=== PATIENT | female | born 1990 | race Caucasian/White ===

== ENCOUNTER 2018-06-29 18:24 | Emergency (ER) | payer MEDICAID ==
[2018-06-29 18:34] VITALS: BP 124/94
--- NOTE | 2018-06-29 18:46 | EDPHY ---
H & P Time Seen by Provider: 06/29/18 18:45 HPI/ROS: Chief complaint. Jaw pain HPI. 27-year-old female 2 day history of right lower posterior dental pain. Hurts to bite down. She feels like she taste pus. No acute trauma to the tooth. She feels a little bit swollen on that her right lower jaw. No fever. No other symptoms. She is nauseated but no vomiting or diarrhea ROS 10 systems were reviewed and negative with the exception of the elements mentioned in the history of present illness Past Medical/Surgical History: Appendectomy, anxiety Social History: Single, daily smoker, no alchol Smoking Status: Heavy smoker Physical Exam: General Appearance: Alert well-developed female mild distress vital signs are stable Eyes: Pupils equal and round no pallor or injection. ENT, Mouth: Mucous membranes are moist. Tenderness to percussio right 3rd molar. No evidence for abscess. Evidence of previous dental work on this tooth. No significant cervical adenopathy Respiratory: There are no retractions, lungs are clear to auscultation. Cardiovascular: Regular rate and rhythm. Gastrointestinal: Abdomen is soft and nontender, no masses, bowel sounds normal. Neurological: Awake and alert, sensory and motor exams grossly normal. Skin: Warm and dry, no rashes. Musculoskeletal: Neck is supple nontender. Extremities symmetrical, full range of motion. Psychiatric: Patient is oriented X 3, there is no agitation. Constitutional: Initial Vital Signs Temperature (C) 37.1 C 06/29/18 18:28 Heart Rate 91 06/29/18 18:28 Respiratory Rate 16 06/29/18 18:28 Blood Pressure 124/94 H 06/29/18 18:28 O2 Sat (%) 99 06/29/18 18:28 O2 Delivery Mode Room Air Allergies/Adverse Reactions: No Known Allergies Allergy (Unverified 06/29/18 18:33) Home Medications: Medication Instructions Recorded Hydrocodone/APAP 5/325 [[place] 1 each PO Q4-6PRN PRN #10 tab 06/29/18 5/325 (*)] Penicillin V Potassium 500 mg PO QID #30 tablet 06/29/18 Medical Decision Making Procedures: Zofran, hydrocodone ED Course/Re-evaluation: I look the patient up in RN REFERRAL aware and there were no matches. Patient and I discussed treatment plan including criteria for return importance of follow-up and further evaluation. She expresses understanding and agreement Differential Diagnosis: Dental pain in a previously worked on tooth. No obvious evidence for abscess. Departure - Departure Disposition: Home, Routine, Self-Care Clinical Impression: Pain, dental Condition: Good Instructions: Toothache (ED) Additional Instructions: Penicillin as antibiotic Ibuprofen 600 mg every 6 hr for pain. Hydrocodone in addition for pain. Call dental aid in the morning to arrange follow-up evaluation Return for worsening symptoms Referrals: Dental Aid [Outside] - As per Instructions Prescriptions: Hydrocodone/APAP 5/325 [[place] 5/325 (*)] 1 each PO Q4-6PRN PRN #10 tab PRN Reason: Pain, Moderate Penicillin V Potassium 500 mg PO QID #30 tablet
[2018-06-29] MEDS ORDERED: HYDROCODONE/APAP 5/325 TAB PO ONE (18:59)
[2018-06-29] MEDS ORDERED: HYDROCOD/APAP 5/325 PREPACK#6 BTL TAKEHOME ONE (18:59)
[2018-06-29] MEDS ORDERED: ONDANSETRON DISINTEGRATING 4 MG TAB PO ONE (19:01)
== END 2018-06-29 19:23 | disposition home or self-care (01) ==
LOC: CED 18:24
DX: K08.89 Other specified disorders of teeth and supporting structures (principal)
CPT/HCPCS: 99284-ER